=== PATIENT | male | born 1945 | race Caucasian/White ===

== ENCOUNTER 2018-10-02 08:23 | Day surgery (SDC) | payer MEDICARE, BC ==
[~2018-10-02] VITALS: Ht 190.5 cm; Wt 72.6 kg
[~2018-10-02 08:23] MED LIST: CHOL10002 PO; ETOD400 PO; FOLI400 PO; Methotrexa25 MG/1 ML IV; VITAMIN B125000 MCG PO
[2018-10-02] MEDS ORDERED: TAMS.4ER PO (09:28)
[2018-10-02] MEDS ORDERED: OMEPRAZOLE20 MG PO (09:29)
== END 2018-10-02 10:41 | disposition home or self-care (01) ==
LOC: ORSCSDS 08:23
PROVIDERS: Internal Medicine Gastroenterology
PROC: 0DBN8ZX Excision of Sigmoid Colon, Via Natural or Artificial Opening Endoscopic, Diagnostic (ICD-10-PCS; principal; 2018-10-02 09:45)
PROC: 0DBK8ZX Excision of Ascending Colon, Via Natural or Artificial Opening Endoscopic, Diagnostic (ICD-10-PCS; principal; 2018-10-02 09:45)
DX: Z12.11 Encounter for screening for malignant neoplasm of colon (principal); D12.2 Benign neoplasm of ascending colon; K62.1 Rectal polyp; K57.30 Diverticulosis of large intestine without perforation or abscess without bleeding; Z79.899 Other long term (current) drug therapy
CPT/HCPCS: 86803; 88305; J2704; J7120

== ENCOUNTER 2020-11-12 10:08 | Day surgery (SDC) | payer MEDICARE, BC ==
[~2020-11-12] VITALS: Ht 188 cm; Wt 71.7 kg
[~2020-11-12 10:08] MED LIST changes: +Acetaminophen325 M1 PO; +FOLI1 PO; -FOLI400 PO; +MULVITA PO; +NAPR500 PO; +Norco 5-325 Ta1 EACH PO; +OMEPRAZOLE20 MG PO; +SILD50TA PO; +TAMS.4ER PO
--- NOTE | 2020-11-12 11:52 | NUR ---
REPORT TO GUILLERMO Candelaria RN TO ASSUME CARE OF PATIENT
--- NOTE | 2020-11-12 12:05 | NUR ---
Ambulatory in Day Surgery Patient confirms NPO status and agrees with scheduled surgery. History, Chart, Medications and Allergies reviewed before start of procedure. Lungs clear T/O to Auscultation. Patient States Post-Procedure ride home has been arranged. + VOID.
--- NOTE | 2020-11-12 16:20 | NUR ---
Patient up to Ambulate independently. Gait steady. Discharge instructions reviewed with patient. Patient verbalizes understanding. Copy given to patient to take home. Discharged via wheelchair to private car for ride home WITH .
== END 2020-11-12 16:21 | disposition home or self-care (01) ==
LOC: ORSCMMR 10:08 → ORD 12:45 → ORSCMMR 16:21
PROVIDERS: Surgery
PROC: 8E0W4CZ Robotic Assisted Procedure of Trunk Region, Percutaneous Endoscopic Approach (ICD-10-PCS; principal; 2020-11-12 12:45)
PROC: 0YUA4JZ Supplement Bilateral Inguinal Region with Synthetic Substitute, Percutaneous Endoscopic Approach (ICD-10-PCS; principal; 2020-11-12 12:45)
DX: K40.90 Unilateral inguinal hernia, without obstruction or gangrene, not specified as recurrent (principal); K40.91 Unilateral inguinal hernia, without obstruction or gangrene, recurrent
CPT/HCPCS: 49651; 49650; S2900; C1781; J0690; J1100; J1885; J2250; J2405; J2704; J3010; J7120

== ENCOUNTER → 2021-12-29 | Outpatient (CLI) | payer MEDICARE, BC | LOC: LAB SHORT 13:52 → PLD 13:52 | DX: D48.5 Neoplasm of uncertain behavior of skin (principal) | CPT/HCPCS: 88342 ==

== ENCOUNTER 2022-07-27 09:43 | Day surgery (SDC) | payer MEDICARE, BC ==
[~2022-07-27] VITALS: Ht 190.5 cm; Wt 72.9 kg
[2022-07-27] MEDS ORDERED: ALEN70 (10:00)
--- NOTE | 2022-07-27 10:06 | NUR ---
07/27/22 1006 Kelsy Rivera TETRACAINE TO RIGHT EYE AT 0959 PLEDGET TO RIGHT EYE AT 1001 BY [facility].G
== END 2022-07-27 11:50 | disposition home or self-care (01) ==
LOC: ORSCSDS 09:43
PROVIDERS: Ophthalmology
PROC: 08RJ3JZ Replacement of Right Lens with Synthetic Substitute, Percutaneous Approach (ICD-10-PCS; principal; 2022-07-27 11:00)
DX: H25.11 Age-related nuclear cataract, right eye (principal); K21.9 Gastro-esophageal reflux disease without esophagitis; N40.0 Benign prostatic hyperplasia without lower urinary tract symptoms; M45.9 Ankylosing spondylitis of unspecified sites in spine; Z79.899 Other long term (current) drug therapy
CPT/HCPCS: J2001; J2250; J3010; J3301; J7040; V2632